=== PATIENT | female | born 1970 | race Two or more races ===

== ENCOUNTER → 2016-07-07 | Outpatient (CLI) | payer OTHER | LOC: M RAD 12:22 | PROVIDERS: ATTEND Nurse Practitioner Family | DX: N63 Unspecified lump in breast (principal) ==

== ENCOUNTER → 2016-07-12 | Outpatient (CLI) | payer OTHER ==
--- NOTE | 2016-07-12 11:53 | REP ---
Digital diagnostic bilateral mammography with CAD and focused right breast sonography: History: Lump found in the right breast at 9 o'clock. Comparison mammography is from June 27, 2015. Mammographic findings: A skin marker is affixed to the skin overlying the area of palpable lump. This projects in the upper outer quadrant of the right breast. Right breast views are augmented by magnified focal spot compression CC, MLO and true ML views. Routine views of the left breast are obtained. Scattered fibroglandular elements are again noted unchanged and symmetric. There is a normal-appearing lymph node projecting in the upper outer quadrant on the left unchanged. No neodensity is seen. No architectural distortion, microcalcification or worrisome skin change is appreciated. Sonographic findings: The right breast is scanned in the 9 o'clock to 11 o'clock position in the upper outer quadrant in the area of the palpable lump at 10 o'clock. Heterogeneous fibroglandular background echotexture is seen. No cyst is observed. No mass lesion is seen. No area of acoustic shadowing or architectural distortion is noted. Impression: BIRADS category II benign bilateral breast imaging. This negative report should not dissuade one from biopsy of a palpable lump depending on its clinical characteristics. Clinical follow-up is recommended. BI-RADS/ACR category 2 mammogram. Benign finding(s). Routine annual screening mammography (for women over age 40). This mammogram was interpreted with the aid of an FDA-approved computer-aided detection system. The patient states she had a clinical breast exam in July 2015. The patient letter being requested is M2. Signed by Mario Alberto Ferreira MD 07/12/2016 12:28 P
== END ==
LOC: M RAD 10:04
PROVIDERS: ATTEND Nurse Practitioner Family
DX: N63 Unspecified lump in breast (principal)
CPT/HCPCS: 76642; G0204

== ENCOUNTER → 2016-08-03 | Outpatient (CLI) | payer SELFPAY ==
[2016-08-03 11:02] LABS: ALBUMIN 3.9 GM/DL (3.2-5.2); ALBUMIN/GLOBULIN RATIO 0.95 (1.00-1.93); ALKALINE PHOSPHATASE 113 U/L (45-117); ALT/SGPT 35 U/L (12-78); ANION GAP 8 MEQ/L (8-16); AST/SGOT 22 U/L (15-37); BILIRUBIN,TOTAL 0.7 MG/DL (0.2-1.0); BLOOD UREA NITROGEN 13 MG/DL (7-18); CALCIUM LEVEL 9.5 MG/DL (8.5-10.1); CARBON DIOXIDE LEVEL 28 MEQ/L (21-32); CHLORIDE LEVEL 99 MEQ/L (98-107); CHOLESTEROL LEVEL 241 MG/DL (<200); CREATININE FOR GFR 0.83 MG/DL (0.55-1.02); GLOMERULAR FILTRATION RATE > 60.0 (>58); GLUCOSE, FASTING 346 MG/DL (70-105); POTASSIUM SERUM 3.7 MEQ/L (3.5-5.1); SODIUM LEVEL 135 MEQ/L (136-145); TRIGLYCERIDES LEVEL 265 MG/DL (<150)
== END ==
LOC: M LAB 09:52
PROVIDERS: ATTEND Family Medicine Addiction Medicine
DX: I10 Essential (primary) hypertension (principal)

== ENCOUNTER 2016-11-02 16:56 | Emergency (ER) | payer OTHER, SELFPAY ==
[~2016-11-02] VITALS: Ht 152.4 cm; Wt 83.5 kg
[2016-11-02] MEDS ORDERED: HYDR12.55 PO (17:15)
[2016-11-02] MEDS ORDERED: AMLO10TA2 PO (17:15)
[2016-11-02] MEDS ORDERED: ONDANSETRON 4MG/2ML VIAL (J2405) IV ONE (17:45)
[2016-11-02] MEDS ORDERED: NS 1,000 ML IV ONE (17:45)
--- NOTE | 2016-11-02 18:08 | REP ---
Clinical: Cerebrovascular accident . Comparison: None. Findings: The ventricles, sulci, and cisterns are normal in position and appearance. Bellamy-white differentiation is maintained. No acute intracranial hemorrhage, mass/mass effect, pathology or trauma/injury. No evidence for acute infarction. No extra-axial fluid collection. Calvarium is intact. Paranasal sinuses and mastoid air cells are clear. Impression: Normal noncontrast head CT. No evidence for acute intracranial pathology or trauma/injury. Signed by Malvin Blanchard MD 11/02/2016 05:59 P
[2016-11-02 18:29] LABS: BASO % 0.5 % (0.0-1.0); EOS # 0.2 K/mm3 (0.0-0.50); EOS % 3.2 % (0.0-3.0); LARGE UNSTAINED CELL # 0.1 K/mm3 (0.0-0.4); LARGE UNSTAINED CELL % 1.6 % (0.0-4.0); LYMPH % 25.4 % (24.0-44.0); MEAN CORPUSCULAR HEMOGLOBIN 25.3 pg (27.0-33.0); MEAN CORPUSCULAR HGB CONC 32.1 g/dl (32.0-36.5); MEAN CORPUSCULAR VOLUME 78.9 fl (80.0-96.0); MONO # 0.4 K/mm3 (0.0-0.8); MONO % 5.7 % (0.0-5.0); NEUTROPHILS # 4.8 K/mm3 (1.8-7.7); NEUTROPHILS % 63.7 % (36.0-66.0); PLATELET COUNT, AUTOMATED 216 k/mm3 (150-450); WHITE BLOOD COUNT 7.5 K/mm3 (4.0-10.0)
[2016-11-02 18:39] LABS: CONTROL LINE HCG INT CTR LINE PRESENT
[2016-11-02 18:48] LABS: ANION GAP 14 MEQ/L (8-16); BLOOD UREA NITROGEN 10 MG/DL (7-18); CALCIUM LEVEL 9.7 MG/DL (8.5-10.1); CARBON DIOXIDE LEVEL 21 MEQ/L (21-32); CHLORIDE LEVEL 99 MEQ/L (98-107); GLOMERULAR FILTRATION RATE > 60.0 (>58); GLUCOSE, FASTING 328 MG/DL (70-105); POTASSIUM SERUM 3.1 MEQ/L (3.5-5.1); SODIUM LEVEL 134 MEQ/L (136-145)
[2016-11-02] MEDS ORDERED: MECLIZINE 25 MG TABLET PO ONE ×2 (19:00→20:45)
[2016-11-02] MEDS ORDERED: POTASSIUM CHLORIDE 10 MEQ SR TABLET PO ONE (19:00)
--- NOTE | 2016-11-02 19:22 | ECGEPIP ---
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
--- NOTE | 2016-11-02 19:26 | REP ---
Clinical: Cerebrovascular accident . Comparison: None . Findings: The mediastinum and cardiac silhouette are stable and within normal limits for portable technique. The lung kaplan are clear without acute consolidation, effusion, or pneumothorax. Skeletal structures are intact. Impression: No acute cardiopulmonary process appreciated. Signed by Malvin Blanchard MD 11/02/2016 07:18 P
[2016-11-02] MEDS ORDERED: MECL-68 PO (20:36)
[2016-11-02] MEDS ORDERED: ZOFR4TAB3 PO (20:36)
[2016-11-02 20:40] VITALS: BP 157/89
== END 2016-11-02 21:32 | disposition home or self-care (01) ==
LOC: M ED 16:56
DX: H83.09 Labyrinthitis, unspecified ear (principal); I10 Essential (primary) hypertension

== ENCOUNTER 2016-11-04 21:39 | Emergency (ER) | payer OTHER ==
[~2016-11-04] VITALS: Ht 170.2 cm; Wt 76.4 kg
[~2016-11-04 21:39] MED LIST: AMLO10TA2 PO; HYDR12.55 PO; MECL-68 PO; ZOFR4TAB3 PO
[2016-11-04] MEDS ORDERED: KETOROLAC 30 MG/ML VIAL (J1885) IV ONE (22:30)
[2016-11-04] MEDS ORDERED: NS 1,000 ML IV ONE (22:30)
[2016-11-04] MEDS ORDERED: ONDANSETRON 4MG/2ML VIAL (J2405) IV ONE (22:30)
[2016-11-04 22:47] LABS: CONTROL LINE UCG INT CTR LINE PRESENT
[2016-11-04 22:54] LABS: BASO % 0.6 % (0.0-1.0); EOS # 0.3 K/mm3 (0.0-0.50); LARGE UNSTAINED CELL # 0.2 K/mm3 (0.0-0.4); LARGE UNSTAINED CELL % 2.2 % (0.0-4.0); LYMPH # 2.7 K/mm3 (1.5-4.5); LYMPH % 35.4 % (24.0-44.0); MEAN CORPUSCULAR HEMOGLOBIN 25.7 pg (27.0-33.0); MEAN CORPUSCULAR HGB CONC 32.7 g/dl (32.0-36.5); MEAN CORPUSCULAR VOLUME 78.5 fl (80.0-96.0); MONO # 0.5 K/mm3 (0.0-0.8); MONO % 6.2 % (0.0-5.0); NEUTROPHILS # 3.7 K/mm3 (1.8-7.7); NEUTROPHILS % 51.5 % (36.0-66.0); PLATELET COUNT, AUTOMATED 224 k/mm3 (150-450); RED CELL DISTRIBUTION WIDTH 15.8 % (11.5-14.5); WHITE BLOOD COUNT 7.2 K/mm3 (4.0-10.0)
[2016-11-04 23:07] LABS: ALBUMIN 3.7 GM/DL (3.2-5.2); ALBUMIN/GLOBULIN RATIO 0.82 (1.00-1.93); ALKALINE PHOSPHATASE 163 U/L (45-117); ALT/SGPT 46 U/L (12-78); ANION GAP 9 MEQ/L (8-16); AST/SGOT 36 U/L (15-37); BILIRUBIN,DIRECT < 0.1 MG/DL (0.0-0.2); BILIRUBIN,TOTAL 0.3 MG/DL (0.2-1.0); BLOOD UREA NITROGEN 9 MG/DL (7-18); CALCIUM LEVEL 9.5 MG/DL (8.5-10.1); CARBON DIOXIDE LEVEL 25 MEQ/L (21-32); CHLORIDE LEVEL 99 MEQ/L (98-107); CREATININE FOR GFR 1.04 MG/DL (0.55-1.02); GLOMERULAR FILTRATION RATE > 60.0 (>58); GLUCOSE, FASTING 370 MG/DL (70-105); SODIUM LEVEL 133 MEQ/L (136-145); TOTAL PROTEIN 8.2 GM/DL (6.4-8.2)
[2016-11-04] MEDS ORDERED: METF500T13 PO (23:43)
[2016-11-04] MEDS ORDERED: metFORMIN (GLUCOPHAGE) 500 MG TAB PO ONE (23:45)
[2016-11-04 23:55] VITALS: BP 164/96
== END 2016-11-05 00:06 | disposition home or self-care (01) ==
LOC: M ED 21:39
DX: E11.9 Type 2 diabetes mellitus without complications (principal)

== ENCOUNTER 2016-11-19 14:47 | Emergency (ER) | payer OTHER ==
[~2016-11-19] VITALS: Ht 170.2 cm; Wt 75.5 kg
[~2016-11-19 14:47] MED LIST changes: +METF500T13 PO
[2016-11-19] MEDS ORDERED: POTA99TA PO (15:06)
[2016-11-19] MEDS ORDERED: ASPI81TA85 PO (15:06)
[2016-11-19 15:59] LABS: INR 0.92
[2016-11-19 16:00] LABS: ALBUMIN 4.3 GM/DL (3.2-5.2); ALBUMIN/GLOBULIN RATIO 0.96 (1.00-1.93); ALKALINE PHOSPHATASE 99 U/L (45-117); ALT/SGPT 51 U/L (12-78); ANION GAP 11 MEQ/L (8-16); AST/SGOT 20 U/L (15-37); BASO % 0.5 % (0.0-1.0); BILIRUBIN,DIRECT 0.1 MG/DL (0.0-0.2); BILIRUBIN,TOTAL 0.7 MG/DL (0.2-1.0); BLOOD UREA NITROGEN 8 MG/DL (7-18); CALCIUM LEVEL 9.9 MG/DL (8.5-10.1); CARBON DIOXIDE LEVEL 25 MEQ/L (21-32); CHLORIDE LEVEL 97 MEQ/L (98-107); CREATININE FOR GFR 0.79 MG/DL (0.55-1.02); EOS # 0.2 K/mm3 (0.0-0.50); EOS % 2.9 % (0.0-3.0); FREE T4 1.21 NG/DL (0.76-1.46); GLOMERULAR FILTRATION RATE > 60.0 (>58); GLUCOSE, FASTING 191 MG/DL (70-105); LARGE UNSTAINED CELL # 0.2 K/mm3 (0.0-0.4); LARGE UNSTAINED CELL % 2.3 % (0.0-4.0); LYMPH # 2.8 K/mm3 (1.5-4.5); LYMPH % 34.6 % (24.0-44.0); MEAN CORPUSCULAR HEMOGLOBIN 26.3 pg (27.0-33.0); MEAN CORPUSCULAR HGB CONC 33.5 g/dl (32.0-36.5); MEAN CORPUSCULAR VOLUME 78.3 fl (80.0-96.0); MONO # 0.5 K/mm3 (0.0-0.8); MONO % 6.6 % (0.0-5.0); NEUTROPHILS % 53.1 % (36.0-66.0); PLATELET COUNT, AUTOMATED 254 k/mm3 (150-450); SODIUM LEVEL 133 MEQ/L (136-145); TOTAL PROTEIN 8.8 GM/DL (6.4-8.2); WHITE BLOOD COUNT 7.5 K/mm3 (4.0-10.0)
[2016-11-19 16:09] LABS: POTASSIUM SERUM 2.8 MEQ/L (3.5-5.1)
[2016-11-19] MEDS ORDERED: POTASSIUM CHLORIDE 10 MEQ SR TABLET PO ONE ×2 (16:15→20:00)
[2016-11-19] MEDS ORDERED: K-TA10TA2 PO ×2 (17:39→18:31)
[2016-11-19] MEDS ORDERED: CHLO25TA GT (17:43)
[2016-11-19] MEDS ORDERED: ISOVUE-370 76% 100ML VIAL (Q9967) As Ordered ONE (17:47)
--- NOTE | 2016-11-19 18:30 | REPUSA ---
CT angiogram of the chest Clinical statement: Chest pain and shortness of breath. Technique: Multiple axial CT images were obtained from the thoracic inlet through the upper abdomen a fter a bolus administration of nonionic intravenous contrast. Coronal and sagittal reconstructions we re also obtained. No comparison is available. Findings: The pulmonary arteries are well-opacified with contrast, with no intraluminal filling defec ts to suggest embolism. The thoracic aorta is unremarkable. Thyroid gland is within normal limits. Th ere is no thoracic lymphadenopathy. There are no pericardial or pleural effusions. The lungs are sung r. Limited imaging of the upper abdomen is unremarkable. There are no suspicious osseous lesions. Impression: Unremarkable CT examination of the chest. No evidence of pulmonary embolism.
[2016-11-19] MEDS ORDERED: HYDR12.55 PO (18:31)
[2016-11-19] MEDS ORDERED: LISI10TA4 PO (18:31)
[2016-11-19 22:30] VITALS: BP 137/90
--- NOTE | 2016-11-20 11:35 | ECGEPIP ---
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
--- NOTE | 2016-11-20 20:00 | ECGEPIP ---
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
--- NOTE | 2016-11-20 20:02 | ECGEPIP ---
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
--- NOTE | 2016-11-22 07:45 | REP ---
Portable chest, single AP view, patient sitting, 03:46 p.m.: Comparison is 11/02/2016. The lung kaplan are clear. The cardiac size is normal. The katelyn, mediastinum, and bony thorax are unremarkable. Impression: Negative portable chest. There is no interval change. Signed by Levon Richard MD 11/19/2016 03:42 P
== END 2016-11-19 22:55 | disposition home or self-care (01) ==
LOC: M ED 14:47
DX: R07.9 Chest pain, unspecified (principal); I10 Essential (primary) hypertension; E87.6 Hypokalemia; E11.9 Type 2 diabetes mellitus without complications

== ENCOUNTER → 2016-11-25 | Outpatient (CLI) | payer OTHER ==
[~2016-11-25] MED LIST changes: +ASPI81TA85 PO; +CHLO25TA GT; +K-TA10TA2 PO; +LISI10TA4 PO; +POTA99TA PO
== END ==
LOC: M LAB 09:18
PROVIDERS: ATTEND Internal Medicine Cardiovascular Disease
DX: I10 Essential (primary) hypertension (principal)

== ENCOUNTER → 2016-11-29 | Outpatient (CLI) | payer OTHER ==
[2016-11-29 13:02] LABS: ANION GAP 12 MEQ/L (8-16); BLOOD UREA NITROGEN 11 MG/DL (7-18); CALCIUM LEVEL 9.7 MG/DL (8.5-10.1); CARBON DIOXIDE LEVEL 23 MEQ/L (21-32); CHLORIDE LEVEL 100 MEQ/L (98-107); CREATININE FOR GFR 0.74 MG/DL (0.55-1.02); GLOMERULAR FILTRATION RATE > 60.0 (>58); GLUCOSE, FASTING 228 MG/DL (70-105); POTASSIUM SERUM 4.1 MEQ/L (3.5-5.1); SODIUM LEVEL 135 MEQ/L (136-145)
== END ==
LOC: M LAB 11:49
PROVIDERS: ATTEND Internal Medicine Cardiovascular Disease
DX: E87.6 Hypokalemia (principal)

== ENCOUNTER → 2017-09-20 | Outpatient (CLI) | payer OTHER | LOC: M WHC 09:30 | DX: Z12.31 Encounter for screening mammogram for malignant neoplasm of breast (principal) ==

== ENCOUNTER → 2018-09-20 | Outpatient (REF) | payer OTHER ==
[~2018-09-20] MED LIST changes: -AMLO10TA2 PO; +AMLO10TA5 PO; +ZOFR4TAB14 PO; -ZOFR4TAB3 PO
[2018-09-20 12:44] LABS: ALBUMIN 3.6 GM/DL (3.2-5.2); ALT/SGPT 37 U/L (12-78); BILIRUBIN,TOTAL 0.5 MG/DL (0.2-1.0); BLOOD UREA NITROGEN 7 MG/DL (7-18); CALCIUM LEVEL 8.7 MG/DL (8.5-10.1); CARBON DIOXIDE LEVEL 26 MEQ/L (21-32); CHLORIDE LEVEL 105 MEQ/L (98-107); CHOLESTEROL LEVEL 135 MG/DL (<200); CREATININE FOR GFR 0.71 MG/DL (0.55-1.30); GLOMERULAR FILTRATION RATE > 60.0 (>58); GLUCOSE, FASTING 185 MG/DL (70-100); HDL CHOLESTEROL 56 MG/DL (>40); LDL CHOLESTEROL 58 MG/DL (<100); NON-HDL-C 79 MG/DL; POTASSIUM SERUM 4.1 MEQ/L (3.5-5.1); SODIUM LEVEL 138 MEQ/L (136-145); TOTAL PROTEIN 8.1 GM/DL (6.4-8.2); TRIGLYCERIDES LEVEL 105 MG/DL (<150)
[2018-09-20 13:33] LABS: HEMOGLOBIN A1c 8.9 %
== END ==
LOC: M LAB REF 11:44
PROVIDERS: ATTEND Family Medicine Addiction Medicine
DX: I10 Essential (primary) hypertension (principal)

== ENCOUNTER → 2018-09-21 | Outpatient (REF) | payer OTHER ==
[2018-09-23 14:12] LABS: HPV HYBRID CAPTURE II Negative (Negative)
== END ==
LOC: M SFHCWAGY 10:08
PROVIDERS: ATTEND Nurse Practitioner Family
DX: Z12.4 Encounter for screening for malignant neoplasm of cervix (principal)
CPT/HCPCS: 87624; G0123

== ENCOUNTER → 2018-09-21 | Outpatient (CLI) | payer OTHER ==
--- NOTE | 2018-09-21 11:08 | REPMRS ---
Patient History The patient states she had a clinical breast exam in 08/2018. No known family history of cancer. 3D TOMOSYNTHESIS WAS PERFORMED. Digital Woman Screen Mammo: September 21, 2018 - Exam #: [id number] Bilateral CC and MLO view(s) were taken. Technologist: Erin Jerome, Technologist Prior study comparison: September 20, 2017, digital woman screen mammo performed at [facility]. July 12, 2016, digital mammo diagnostic bilateral, performed at [facility]. FINDINGS: The breast tissue is heterogeneously dense. This may lower the sensitivity of mammography. There has been no change in the appearance of the mammogram from the prior studies. There is a moderate amount of residual fibroglandular tissue which is fairly symmetric. There is no interval development of dominant mass, areas of architectural distortion, or clustered microcalcification typical of malignancy. Assessment: BI-RADS/ACR category 1 mammogram. Negative Mammogram. Recommendation Routine screening mammogram in 1 year (for women over age 40). This mammogram was interpreted with the aid of an FDA-approved computer-aided dectection system. Electronically Signed By: Levon Bellamy MD 09/21/18 0103
== END ==
LOC: M WHC 09:35
PROVIDERS: ATTEND Nurse Practitioner Family
DX: Z12.31 Encounter for screening mammogram for malignant neoplasm of breast (principal)

== ENCOUNTER → 2018-10-03 | Outpatient (CLI) | payer OTHER ==
--- NOTE | 2018-10-04 04:04 | REP ---
Clinical: Pelvic pain. Enlarged uterus . Technique: Transabdominal pelvic ultrasound followed by transvaginal examination for better evaluation of the endometrium and adnexa. Findings: Bladder is unremarkable and measures 8.8 x 9.5 x 8.5 cm . Enlarged heterogeneous myomatous uterus measures 18.8 x 9.4 x 13.4 cm . The endometrial complex measures 5.8 mm thickness. Innumerable subserosal, intramural, and submucosal fibroids are identified throughout the uterus including at the fundus and lower uterine segment measuring between 2.9 to 6.8 cm maximal diameter each. Largest fundal intramural / submucosal fibroid causes mass effect along the posterior endometrium. Nabothian cysts are also identified measuring up to 1.4 cm maximal diameter. Bilateral ovaries are normal in appearance. Right ovary measures 1.4 x 1.0 x 1.8 cm. Left ovary measures 1.7 x 0.6 x 1.4 cm. No pelvic fluid or adnexal mass lesion. . Impression: 1. Enlarged heterogeneous myomatous uterus with at least seven discrete fibroids up to 6.8 cm having mass effect on the endometrial canal. Nabothian cysts measuring up to 1.4 cm. 2. Normal bilateral ovaries
== END ==
LOC: M WHC 07:47
PROVIDERS: ATTEND Nurse Practitioner Family
DX: D25.2 Subserosal leiomyoma of uterus (principal); D25.0 Submucous leiomyoma of uterus; D25.1 Intramural leiomyoma of uterus; N88.8 Other specified noninflammatory disorders of cervix uteri

== ENCOUNTER → 2018-10-20 | Outpatient (REF) | payer SELFPAY ==
[2018-10-20 13:36] LABS: ALT/SGPT 38 U/L (12-78); BILIRUBIN,TOTAL 0.8 MG/DL (0.2-1.0); BLOOD UREA NITROGEN 8 MG/DL (7-18); CALCIUM LEVEL 9.2 MG/DL (8.5-10.1); CARBON DIOXIDE LEVEL 27 MEQ/L (21-32); CHLORIDE LEVEL 105 MEQ/L (98-107); CHOLESTEROL LEVEL 149 MG/DL (<200); CHOLESTEROL RISK RATIO 2.709 (<5); CREATININE FOR GFR 0.88 MG/DL (0.55-1.30); GLOMERULAR FILTRATION RATE > 60.0 (>58); GLUCOSE, FASTING 191 MG/DL (70-100); HDL CHOLESTEROL 55 MG/DL (>40); LDL CHOLESTEROL 70 MG/DL (<100); NON-HDL-C 94 MG/DL; SODIUM LEVEL 138 MEQ/L (136-145); TRIGLYCERIDES LEVEL 119 MG/DL (<150)
[2018-10-20 14:32] LABS: HEMOGLOBIN A1c 9.3 %
== END ==
LOC: M LAB REF 12:17
PROVIDERS: ATTEND Family Medicine Addiction Medicine
DX: E11.65 Type 2 diabetes mellitus with hyperglycemia (principal)

== ENCOUNTER → 2019-04-24 | Outpatient (REF) | payer SELFPAY ==
[2019-04-24 14:02] LABS: HEMOGLOBIN A1c 8.8 %
== END ==
LOC: M LAB REF 12:46
PROVIDERS: ATTEND Nurse Practitioner Family
DX: E11.9 Type 2 diabetes mellitus without complications (principal)

== ENCOUNTER → 2019-05-08 | Outpatient (REF) | payer SELFPAY ==
[2019-05-08 16:59] LABS: HEMOGLOBIN A1c 8.8 %
== END ==
LOC: M LAB REF 12:10
PROVIDERS: ATTEND Nurse Practitioner Family
DX: E11.9 Type 2 diabetes mellitus without complications (principal)

== ENCOUNTER → 2019-09-25 | Outpatient (CLI) | payer OTHER ==
[~2019-09-25] MED LIST changes: -MECL-68 PO; +MECL1TAB31 PO
--- NOTE | 2019-09-25 11:47 | REPMRS ---
Patient History The patient states she had a clinical breast exam in August 2019. No known family history of cancer. Digital Woman Screen Mammo: September 25, 2019 - Exam #: [id number] Bilateral CC and MLO view(s) were taken. Technologist: Mayte Villa Technologist Prior study comparison: September 21, 2018, bilateral digital woman screen mammo performed at [facility]. September 20, 2017, digital woman screen mammo performed at [facility]. July 12, 2016, right breast ultrasound unilateral limited, performed at [facility]. FINDINGS: There are scattered fibroglandular densities. The Volpara volumetric breast density category is:B. There has been no change in the appearance of the mammogram from the prior studies. There is a mild amount of scattered fibroglandular density which is fairly symmetric. There is no interval development of dominant mass, architectural distortion, or grouped microcalcification suggestive of malignancy. 3-D tomosynthesis shows no additional findings. Assessment: BI-RADS/ACR category 1 mammogram. Negative Mammogram. Recommendation Routine screening mammogram of both breasts in 1 year (for women over age 40). This patient's Lifetime Breast Cancer Risk is estimated at 13.2 %. This mammogram was interpreted with the aid of an FDA-approved computer-aided dectection system. Electronically Signed By: Phoenix Ferreira MD 09/25/19 7109
== END ==
LOC: M WHC 10:48
PROVIDERS: ATTEND Nurse Practitioner Family
DX: Z12.31 Encounter for screening mammogram for malignant neoplasm of breast (principal)

== ENCOUNTER → 2019-11-06 | Outpatient (REF) | payer SELFPAY ==
[~2019-11-06] MED LIST changes: -AMLO10TA5 PO; +AMLO1TAB25 PO; -ASPI81TA85 PO; +ASPI81TA86 PO
[2019-11-06 15:08] LABS: ALT/SGPT 34 U/L (12-78); BILIRUBIN,TOTAL 0.4 MG/DL (0.2-1.0); BLOOD UREA NITROGEN 11 MG/DL (7-18); CALCIUM LEVEL 9.4 MG/DL (8.5-10.1); CARBON DIOXIDE LEVEL 31 MEQ/L (21-32); CHLORIDE LEVEL 106 MEQ/L (98-107); CHOLESTEROL LEVEL 156 MG/DL (<200); CHOLESTEROL RISK RATIO 3.319 (<5); CREATININE FOR GFR 0.72 MG/DL (0.55-1.30); GLOMERULAR FILTRATION RATE > 60.0 (>58); GLUCOSE, FASTING 163 MG/DL (70-100); HDL CHOLESTEROL 47 MG/DL (>40); LDL CHOLESTEROL 90 MG/DL (<100); NON-HDL-C 109 MG/DL; POTASSIUM SERUM 3.9 MEQ/L (3.5-5.1); SODIUM LEVEL 139 MEQ/L (136-145); TRIGLYCERIDES LEVEL 97 MG/DL (<150)
[2019-11-06 20:37] LABS: HEMOGLOBIN A1c 8.3 %
== END ==
LOC: M LAB REF 12:54
PROVIDERS: ATTEND Physician Assistant
DX: E11.65 Type 2 diabetes mellitus with hyperglycemia (principal); I10 Essential (primary) hypertension

== ENCOUNTER → 2020-02-28 | Outpatient (REF) | payer SELFPAY ==
[2020-02-28 16:58] LABS: BASO % 0.8 % (0.0-1.0); EOS # 0.3 10^3/uL (0.0-0.5); EOS % 5.2 % (0.0-3.0); HEMATOCRIT 39.5 % (36.0-47.0); HEMOGLOBIN 12.2 g/dl (12.0-15.5); LYMPH % 37.9 % (24.0-44.0); MEAN CORPUSCULAR HEMOGLOBIN 24.6 pg (27.0-33.0); MEAN CORPUSCULAR HGB CONC 30.9 g/dl (32.0-36.5); MEAN CORPUSCULAR VOLUME 79.8 fl (80.0-96.0); MONO # 0.5 10^3/uL (0.0-0.8); MONO % 9.9 % (0.0-5.0); NEUTROPHILS # 2.4 10^3/uL (1.5-8.5); RED BLOOD COUNT 4.95 10^6/uL (4.00-5.40); WHITE BLOOD COUNT 5.2 10^3/uL (4.0-10.0)
[2020-02-28 17:32] LABS: ALT/SGPT 41 U/L (12-78); BILIRUBIN,TOTAL 0.5 MG/DL (0.2-1.0); BLOOD UREA NITROGEN 11 MG/DL (7-18); CALCIUM LEVEL 9.3 MG/DL (8.5-10.1); CARBON DIOXIDE LEVEL 30 MEQ/L (21-32); CHLORIDE LEVEL 103 MEQ/L (98-107); CREATININE FOR GFR 0.75 MG/DL (0.55-1.30); GLOMERULAR FILTRATION RATE > 60.0 (>58); GLUCOSE, FASTING 205 MG/DL (70-100); POTASSIUM SERUM 4.9 MEQ/L (3.5-5.1); SODIUM LEVEL 137 MEQ/L (136-145); TOTAL PROTEIN 8.2 GM/DL (6.4-8.2)
[2020-02-28 17:48] LABS: PLATELET COUNT, AUTOMATED 157 10^3/uL (150-450)
== END ==
LOC: M LAB REF 16:31
PROVIDERS: ATTEND Physician Assistant
DX: I10 Essential (primary) hypertension (principal)

== ENCOUNTER → 2020-05-07 | Outpatient (REF) | payer SELFPAY ==
[2020-05-07 16:33] LABS: BASO % 0.6 % (0.0-1.0); EOS # 0.4 10^3/uL (0.0-0.5); EOS % 7.9 % (0.0-3.0); HEMOGLOBIN 11.7 g/dl (12.0-15.5); LYMPH # 1.9 10^3/uL (1.5-5.0); LYMPH % 37.2 % (24.0-44.0); MEAN CORPUSCULAR HEMOGLOBIN 24.8 pg (27.0-33.0); MEAN CORPUSCULAR HGB CONC 30.8 g/dl (32.0-36.5); MEAN CORPUSCULAR VOLUME 80.7 fl (80.0-96.0); MONO # 0.5 10^3/uL (0.0-0.8); MONO % 8.9 % (0.0-5.0); NEUTROPHILS # 2.3 10^3/uL (1.5-8.5); NEUTROPHILS % 45.2 % (36.0-66.0); PLATELET COUNT, AUTOMATED 167 10^3/uL (150-450); RED BLOOD COUNT 4.71 10^6/uL (4.00-5.40); WHITE BLOOD COUNT 5.2 10^3/uL (4.0-10.0)
[2020-05-07 17:01] LABS: ALBUMIN 4.2 GM/DL (3.2-5.2); ALT/SGPT 42 U/L (12-78); BILIRUBIN,TOTAL 0.5 MG/DL (0.2-1.0); BLOOD UREA NITROGEN 10 MG/DL (7-18); CARBON DIOXIDE LEVEL 30 MEQ/L (21-32); CHLORIDE LEVEL 105 MEQ/L (98-107); CREATININE FOR GFR 0.78 MG/DL (0.55-1.30); GLOMERULAR FILTRATION RATE > 60.0 (>58); GLUCOSE, FASTING 195 MG/DL (70-100); POTASSIUM SERUM 4.7 MEQ/L (3.5-5.1); SODIUM LEVEL 137 MEQ/L (136-145); TOTAL PROTEIN 7.9 GM/DL (6.4-8.2)
[2020-05-07 18:01] LABS: HEMOGLOBIN A1c 7.6 %
== END ==
LOC: M LAB REF 16:00
PROVIDERS: ATTEND Physician Assistant
DX: E11.65 Type 2 diabetes mellitus with hyperglycemia (principal)

== ENCOUNTER → 2020-07-10 | Outpatient (CLI) | payer BC, SELFPAY ==
[~2020-07-10] MED LIST changes: +LISI10TA22 PO; -LISI10TA4 PO
--- NOTE | 2020-07-10 10:20 | REP ---
INDICATION: PAIN COMPARISON: None. TECHNIQUE: Internal rotation, external rotation, and Y view. FINDINGS: No evidence for acute fracture or dislocation. Subtle irregularity along the inferior margin of the glenoid rim is suggested. The acromioclavicular joint and proximal humerus appear normal. The subacromial space is normal. No periarticular calcifications. No osteophytosis. Surrounding soft tissues are normal. IMPRESSION: Essentially age-appropriate examination. Minimal degenerative changes along the inferior margin of the glenoid rim cannot be excluded. <Electronically signed by Malvin Blanchard > 07/10/20 1016
== END ==
LOC: M WUC 09:38
PROVIDERS: ATTEND Physician Assistant
DX: M19.011 Primary osteoarthritis, right shoulder (principal)

== ENCOUNTER → 2020-09-25 | Outpatient (CLI) | payer OTHER, BC ==
--- NOTE | 2020-09-25 10:51 | REPMRS ---
Patient History The patient states she had a clinical breast exam in August 2020. No known family history of cancer. Patient states no breast complaints today. Patient has signed MRS History Sheet. Digital Woman Screen Mammo: September 25, 2020 - Exam #: [id number] Bilateral CC and MLO view(s) were taken. Technologist: Mayte Villa Technologist Prior study comparison: September 25, 2019, bilateral digital woman screen mammo performed at [facility]. September 21, 2018, bilateral digital woman screen mammo performed at [facility]. September 20, 2017, digital woman screen mammo performed at [facility]. FINDINGS: There are scattered fibroglandular densities. The Volpara volumetric breast density category is:B. There has been no change in the appearance of the mammogram from the prior studies. There is a mild amount of scattered fibroglandular density which is fairly symmetric. There is no interval development of dominant mass, architectural distortion, or grouped microcalcification suggestive of malignancy. 3-D tomosynthesis shows no additional findings. Assessment: BI-RADS/ACR category 1 mammogram. Negative Mammogram. Recommendation Routine screening mammogram of both breasts in 1 year (for women over age 40). This patient's [facility] Lifetime Breast Cancer Risk is estimated at 13.0 %. This mammogram was interpreted with the aid of an FDA-approved computer-aided dectection system. Electronically Signed By: Phoenix Ferreira MD 09/25/20 2730
== END ==
LOC: M WHC 10:05
PROVIDERS: ATTEND Nurse Practitioner Women's Health
DX: Z12.31 Encounter for screening mammogram for malignant neoplasm of breast (principal)

== ENCOUNTER → 2020-10-15 | Outpatient (REF) ==
[2020-10-16 05:12] LABS: HERPES ZOSTER, VARICELLA IgG 956 index (Immune >165); RUBEOLA IgG ANTIBODY >300.0 AU/mL (Immune >16.4)
== END ==
LOC: M LAB 11:21
PROVIDERS: ATTEND Nurse Practitioner Adult Health
DX: Z02.89 Encounter for other administrative examinations (principal)

== ENCOUNTER → 2020-10-15 | Outpatient (CLI) | payer BC ==
--- NOTE | 2020-10-16 07:32 | REP ---
INDICATION: NON TOXIC GOITER COMPARISON: None. TECHNIQUE: Bellamy scale and color evaluation of the thyroid gland using the linear high frequency transducer. FINDINGS: The thyroid gland is normal in contour, shape, size, and echogenicity. No nodule/mass or cystic abnormalities are appreciated. Right thyroid lobe measures 4.0 x 1.8 x 1.9 cm. Isthmus measures 7 mm in width. Left thyroid lobe measures 2.6 x 1.1 x 1.2 cm. IMPRESSION: Relatively normal thyroid gland. <Electronically signed by Malvin Blanchard > 10/16/20 0729
== END ==
LOC: M RAD 14:29
PROVIDERS: ATTEND Pediatrics
DX: E04.9 Nontoxic goiter, unspecified (principal)

== ENCOUNTER → 2020-10-22 | Outpatient (REF) ==
--- NOTE | 2020-10-22 13:08 | REP ---
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 COMPARISON: 11/19/2016 a portable exam FINDINGS: The superior mediastinal structures are midline. The cardiac silhouette is unremarkable in size, shape, and position. The diaphragmatic surfaces of the lungs are regular, and the costophrenic angles are clear. The pulmonary kaplan are clear. The imaged osseous structures are intact. IMPRESSION: There is no acute cardiopulmonary disease. <Electronically signed by Smooth Mojica > 10/22/20 [id number]
== END ==
LOC: M RAD 11:15
PROVIDERS: ATTEND Nurse Practitioner Adult Health
DX: R76.11 Nonspecific reaction to tuberculin skin test without active tuberculosis (principal); Z02.89 Encounter for other administrative examinations

== ENCOUNTER 2020-11-14 17:15 | Emergency (ER) | payer BC ==
[~2020-11-14] VITALS: Ht 170.2 cm; Wt 74.5 kg
[2020-11-14] MEDS ORDERED: CARV25TA PO (17:26)
[2020-11-14] MEDS ORDERED: LISI20TA33 PO (17:26)
[2020-11-14] MEDS ORDERED: METF-838 PO (17:26)
[2020-11-14] MEDS ORDERED: CHLO125TA PO (17:26)
--- NOTE | 2020-11-14 18:33 | REP ---
INDICATION: elevated BP. COMPARISON: 10/22/2020 chest x-ray, 11/19/2016 CT angio chest. TECHNIQUE: Two views FINDINGS: The lung kaplan are well inflated without focal mass, acute infiltrate, pleural effusion, atelectasis or pulmonary nodule. There is no lateral pleural thickening or apical scar. Heart, mediastinal and hilar contours are normal. The aorta and airway were intact. The bony thorax shows no acute finding. There is no free air under the diaphragm. IMPRESSION: 1. No acute cardiopulmonary disease, stable chest. <Electronically signed by Sergio Johnson > 11/14/20 [id number]
[2020-11-14 19:45] LABS: BASO % 0.8 % (0.0-1.0); EOS # 0.3 10^3/uL (0.0-0.5); EOS % 6.6 % (0.0-3.0); HEMOGLOBIN 12.9 g/dl (12.0-15.5); LYMPH # 1.7 10^3/uL (1.5-5.0); LYMPH % 34.4 % (24.0-44.0); MEAN CORPUSCULAR HEMOGLOBIN 24.3 pg (27.0-33.0); MEAN CORPUSCULAR HGB CONC 31.5 g/dl (32.0-36.5); MEAN CORPUSCULAR VOLUME 77.2 fl (80.0-96.0); MONO # 0.5 10^3/uL (0.0-0.8); MONO % 9.5 % (2.0-8.0); NEUTROPHILS # 2.4 10^3/uL (1.5-8.5); NEUTROPHILS % 48.5 % (36.0-66.0); PLATELET COUNT, AUTOMATED 176 10^3/uL (150-450); RED BLOOD COUNT 5.31 10^6/uL (4.00-5.40)
[2020-11-14 20:12] LABS: ALT/SGPT 50 U/L (12-78); BILIRUBIN,DIRECT 0.1 MG/DL (0.0-0.2); BILIRUBIN,TOTAL 0.5 MG/DL (0.2-1.0); BLOOD UREA NITROGEN 9 MG/DL (7-18); CALCIUM LEVEL 9.4 MG/DL (8.5-10.1); CARBON DIOXIDE LEVEL 28 MEQ/L (21-32); CHLORIDE LEVEL 105 MEQ/L (98-107); CREATININE FOR GFR 0.84 MG/DL (0.55-1.30); GLOMERULAR FILTRATION RATE > 60.0 (>58); GLUCOSE, FASTING 212 MG/DL (70-100); LIPASE 279 U/L (73-393); POTASSIUM SERUM 3.8 MEQ/L (3.5-5.1); SODIUM LEVEL 141 MEQ/L (136-145); TOTAL PROTEIN 8.5 GM/DL (6.4-8.2)
[2020-11-14] MEDS ORDERED: hydrALAZINE 20MG/ML 1ML VIAL (J0360 PER 20MG) IV STA (23:17)
[2020-11-14 23:54] LABS: CK-MB VALUE MASS 1.2 NG/ML (<3.6); CPK CREATINE PHOSPHOKINASE 218 U/L (26-192); MB/CK RELATIVE INDEX 0.55 (< OR =4); TROPONIN I < 0.02 NG/ML (< 0.10)
[2020-11-15] MEDS ORDERED: CARVedilol 12.5 MG TAB PO ONE (00:05)
[2020-11-15 00:42] VITALS: BP 174/90
[2020-11-15 02:45] VITALS: BP 146/70
--- NOTE | 2020-11-15 10:57 | ECGEPIP ---
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
== END 2020-11-15 03:02 | disposition home or self-care (01) ==
LOC: M ED 17:15
DX: I10 Essential (primary) hypertension (principal); E11.9 Type 2 diabetes mellitus without complications; E78.5 Hyperlipidemia, unspecified; Z79.899 Other long term (current) drug therapy; Z79.84 Long term (current) use of oral hypoglycemic drugs

== ENCOUNTER → 2020-12-09 | Outpatient (CLI) | payer BC ==
[~2020-12-09] MED LIST changes: +CARV25TA PO; +CHLO125TA PO; +LISI20TA33 PO; +METF-838 PO
--- NOTE | 2020-12-09 09:14 | REP ---
INDICATION: HTN. COMPARISON: None. TECHNIQUE: Bilateral renal ultrasound. Bilateral renal artery Doppler ultrasound. FINDINGS: Bilateral renal ultrasound: The right kidney measures 11.5 x 6.4 x 4.8 cm. Left kidney measures 10.3 x 5.7 x 6.3 cm. The kidneys are normal size. There is no calculus or hydronephrosis the right or the left. There are no solid or cystic renal masses on the right or the left. Bladder: The bladder is incompletely distended and cannot be further evaluated. However, a 6.9 x 6.8 by 8.1 cm hypoechoic mass is noted in the uterus compatible with fibroid. Additionally noted that on the pelvic ultrasound dated 10/03 2018 at least 7 uterine fibroids were identified. Bilateral renal artery Doppler ultrasound: Right renal artery: Peak renal artery velocity: 116.0 centimeters/second. Peak aortic velocity: 111.0 centimeters/second. Renal-aortic ratio: 1.0. Resistive index: Upper pole 0.66, mid pole 0.66, lower pole 0.67. Acceleration time: Upper pole 0.03, mid pole 0.04 L lower pole 0.05 Left kidney: Peak renal artery velocity: 111 centimeters/second. Peak aortic velocity: 111 centimeters/second. Renal-aortic ratio: 1.0. Resistive index: Upper pole: 0.75, mid pole 0.69, lower pole 0.68. Acceleration time: Upper pole 0.04, mid pole 0.04, lower pole 0.05. IMPRESSION: The kidneys are normal size and otherwise unremarkable. Fibroid is identified in the uterus. There is no ultrasound evidence of renal artery stenosis in the right or left renal arteries. <Electronically signed by Levon Richard > 12/09/20 1989
--- NOTE | 2020-12-09 22:25 | ECHO ---
"ECHOCARDIOGRAM DATE OF PROCEDURE: 12/09/2020 Age: 50 Gender: Female Height: 170 cm Weight: 73 kg REFERRING PHYSICIAN: Dr. Rose Marie Locke INDICATION: Hypertension MEASUREMENTS: | IVS 1.2 cm LV 4.0 cm LVPW 1.2 cm LA 3.2 cm Aorta 2.7 cm Left atrium volume index 31 Mitral E wave velocity 71 A wave 70 E prime septal 5.1 E prime lateral 7.4 FINDINGS: This study is of good technical quality. The patient is in sinus rhythm. Left ventricle is normal size and systolic function, calculated LVEF of 64%. Mild left ventricular hypertrophy is present. Right ventricle is also normal size and normal systolic function. Left atrium is mildly enlarged. Right atrium is normal. Aortic, mitral, tricuspid and pulmonic valves all appear normal. No pericardial effusion is noted. Inferior vena cava was poorly seen. Aortic root and aortic arch appear normal. Abdominal aorta was not well visualized. Doppler interrogation reveals competent aortic valve. There is trace mitral and trace tricuspid insufficiency. Quality of TR jet was not sufficient to estimate pulmonary artery pressure. Pulmonic valve was functionally competent. Mitral inflow pattern and tissue Doppler imaging of mitral annulus revealed probably grade 2 diastolic dysfunction due to reduced velocities of mitral annulus. CONCLUSIONS: 1. Study is of good technical quality; underlying sinus rhythm. 2. Normal LV size with normal LV systolic function, calculated LVEF of 64%. Mild LVH. Likely grade 2 diastolic dysfunction. 3. No significant valvular disease. 4. Unable to estimate central venous pressure and pulmonary artery pressure."
== END ==
LOC: M RAD 07:33
PROVIDERS: ATTEND Pediatrics
DX: I10 Essential (primary) hypertension (principal)

== ENCOUNTER 2021-01-07 14:30 | Emergency (ER) | payer BC ==
[~2021-01-07] VITALS: Ht 170.2 cm; Wt 74.3 kg
[2021-01-07] MEDS ORDERED: LOSA100T50 (15:25)
[2021-01-07 21:18] LABS: BASO % 0.5 % (0.0-1.0); EOS # 0.3 10^3/uL (0.0-0.5); EOS % 4.2 % (0.0-3.0); HEMATOCRIT 40.9 % (36.0-47.0); HEMOGLOBIN 12.9 g/dl (12.0-15.5); LYMPH # 2.3 10^3/uL (1.5-5.0); LYMPH % 37.5 % (24.0-44.0); MEAN CORPUSCULAR HEMOGLOBIN 24.3 pg (27.0-33.0); MEAN CORPUSCULAR HGB CONC 31.5 g/dl (32.0-36.5); MEAN CORPUSCULAR VOLUME 77.2 fl (80.0-96.0); MONO # 0.5 10^3/uL (0.0-0.8); NEUTROPHILS % 49.5 % (36.0-66.0); PLATELET COUNT, AUTOMATED 177 10^3/uL (150-450)
[2021-01-07 21:38] LABS: ERYTHROCYTE SEDIMENTATION RATE 14 mm/hr (0-20)
[2021-01-07 21:41] LABS: C REACTIVE PROTEIN QUANTITATIV < 0.30 MG/DL (0.00-0.30); CK-MB VALUE MASS < 1.0 NG/ML (<3.6); CPK CREATINE PHOSPHOKINASE 164 U/L (26-192); MB/CK RELATIVE INDEX 0.61 (< OR =4); TROPONIN I < 0.02 NG/ML (< 0.10)
--- NOTE | 2021-01-07 22:04 | REPVR ---
PROCEDURE INFORMATION: Exam: XR Chest Exam date and time: 01/07/21 (8:54pm) Age: 50 years old Clinical indication: Hypertensive emergency TECHNIQUE: Imaging protocol: Portable CXR Views: 1 view COMPARISON: Chest films of 11/14/20 FINDINGS: Lungs: Unremarkable. No consolidation. Pleural spaces: Unremarkable. No pleural effusions. No pneumothorax. Heart/Mediastinum: Heart may be top normal in size. Bones/joints: Unremarkable. IMPRESSION: No acute findings. Lung kaplan remain clear. Electronically signed by: Nella Dempsey On 01/07/2021 22:03:51 PM
[2021-01-07] MEDS ORDERED: KETOROLAC 30 MG/ML 1ML VIAL IV ONE (22:05)
[2021-01-07] MEDS ORDERED: CARVedilol 12.5 MG TAB PO ONE (22:05)
[2021-01-07] MEDS ORDERED: cloNIDine 0.2 MG TAB PO ONE (22:45)
[2021-01-07 22:50] VITALS: BP 200/106
[2021-01-07] MEDS ORDERED: CHLO125TA PO (23:48)
[2021-01-08 00:05] VITALS: BP 136/77
--- NOTE | 2021-01-08 06:36 | ECGEPIP ---
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
== END 2021-01-08 00:05 | disposition home or self-care (01) ==
LOC: M ED 14:30
DX: I16.0 Hypertensive urgency (principal); E11.9 Type 2 diabetes mellitus without complications; E78.5 Hyperlipidemia, unspecified; I10 Essential (primary) hypertension; Z79.84 Long term (current) use of oral hypoglycemic drugs; Z79.899 Other long term (current) drug therapy
CPT/HCPCS: 36415; 71045; 80047; 82550; 82553; 85025; 85652; 86140; 93005; 96374; 99284; J1885

== ENCOUNTER → 2021-05-18 | Outpatient (REF) ==
[~2021-05-18] MED LIST changes: +LOSA100T45
== END ==
LOC: M LABSMTC 11:54
PROVIDERS: ATTEND Pediatrics
DX: Z20.822 Contact with and (suspected) exposure to COVID-19 (principal)

== ENCOUNTER → 2021-08-28 | Outpatient (CLI) | payer BC | LOC: M RAD 11:19 | PROVIDERS: ATTEND Pediatrics | DX: M25.551 Pain in right hip (principal) ==

== ENCOUNTER → 2021-10-06 | Outpatient (CLI) | payer BC | LOC: M WHC 12:09 | PROVIDERS: ATTEND Pediatrics | DX: Z12.31 Encounter for screening mammogram for malignant neoplasm of breast (principal); R92.8 Other abnormal and inconclusive findings on diagnostic imaging of breast ==

== ENCOUNTER → 2021-10-19 | Outpatient (CLI) | payer BC | LOC: M WHC 13:13 | PROVIDERS: ATTEND Pediatrics | DX: R92.8 Other abnormal and inconclusive findings on diagnostic imaging of breast (principal) | CPT/HCPCS: 77065; G0279 ==

== ENCOUNTER → 2021-11-01 | Outpatient (CLI) | payer BC ==
[~2021-11-01] MED LIST changes: +ASPI81TA26 PO; +FISH1000 PO; +FOLI1TAB11 PO; +IRBE300T7 PO; +VITMTA PO
== END ==
LOC: M LABSMTC 09:30
PROVIDERS: ATTEND Anesthesiology
DX: Z11.52 Encounter for screening for COVID-19 (principal); Z20.822 Contact with and (suspected) exposure to COVID-19

== ENCOUNTER 2021-11-04 07:13 | Day surgery (SDC) | payer BC ==
[~2021-11-04] VITALS: Ht 170.2 cm; Wt 68.9 kg
[~2021-11-04 07:13] MED LIST changes: +NS 1,000 ML IV ONE
[2021-11-04] MEDS ORDERED: propofoL 200 MG/20 ML VIAL As Ordered ONE (08:09)
[2021-11-04] MEDS ORDERED: LIDOCAINE 2% MDV 20ML VIAL As Ordered ONE (08:09)
[2021-11-04 09:14] VITALS: BP 118/67
== END 2021-11-04 09:18 | disposition home or self-care (01) ==
LOC: M OPP 07:13
PROVIDERS: ATTEND Surgery
DX: Z12.11 Encounter for screening for malignant neoplasm of colon (principal); K64.0 First degree hemorrhoids; E11.9 Type 2 diabetes mellitus without complications; I10 Essential (primary) hypertension; Z79.02 Long term (current) use of antithrombotics/antiplatelets; Z79.82 Long term (current) use of aspirin; Z79.899 Other long term (current) drug therapy

== ENCOUNTER → 2021-12-11 | Outpatient (CLI) | payer BC ==
[~2021-12-11] MED LIST changes: +ISOVUE-300 61% 50ML VIAL As Ordered ONE; +ISOVUE-300 61% 5ML SYRINGE As Ordered ONE; +LIDOCAINE 1% MDV 20ML VIAL As Ordered ONE; -NS 1,000 ML IV ONE; +PROHANCE 279.3MG/ML 15ML VIAL As Ordered ONE; +PROHANCE 279.3MG/ML 5ML VIAL As Ordered ONE
== END ==
LOC: M RADPRO 10-26 06:45
PROVIDERS: ATTEND Orthopaedic Surgery Adult Reconstructive Orthopaedic Surgery
DX: M70.61 Trochanteric bursitis, right hip (principal)
CPT/HCPCS: 27093; 73723; 77002; A9576; Q9967

== ENCOUNTER → 2021-12-22 | Outpatient (CLI) | payer BC ==
[~2021-12-22] MED LIST changes: -ISOVUE-300 61% 50ML VIAL As Ordered ONE; -ISOVUE-300 61% 5ML SYRINGE As Ordered ONE; -LIDOCAINE 1% MDV 20ML VIAL As Ordered ONE; -PROHANCE 279.3MG/ML 5ML VIAL As Ordered ONE
== END ==
LOC: M RAD 14:57
PROVIDERS: ATTEND Orthopaedic Surgery Adult Reconstructive Orthopaedic Surgery
DX: R93.7 Abnormal findings on diagnostic imaging of other parts of musculoskeletal system (principal); M16.11 Unilateral primary osteoarthritis, right hip
CPT/HCPCS: 72197; A9576

== ENCOUNTER → 2022-10-27 | Outpatient (CLI) | payer BC ==
[~2022-10-27] MED LIST changes: -K-TA10TA2 PO; -LOSA100T45; +LOSA100T46; +POTA-165 PO; -PROHANCE 279.3MG/ML 15ML VIAL As Ordered ONE
== END ==
LOC: M WHC 15:40
PROVIDERS: ATTEND Pediatrics
DX: Z12.31 Encounter for screening mammogram for malignant neoplasm of breast (principal)

== ENCOUNTER 2022-12-01 15:49 | Emergency (ER) | payer OTHER, BC ==
[~2022-12-01] VITALS: Ht 170.2 cm; Wt 72.7 kg
[2022-12-01] MEDS ORDERED: IBUP-1022 PO (19:08)
[2022-12-01] MEDS ORDERED: IBUPROFEN 600MG TAB PO ONE (19:10)
[2022-12-01 19:14] VITALS: BP 143/80; TEMP 98; O2SAT 100
== END 2022-12-01 19:21 | disposition home or self-care (01) ==
LOC: M ED 15:49
DX: S63.92XA Sprain of unspecified part of left wrist and hand, initial encounter (principal); X50.0XXA Overexertion from strenuous movement or load, initial encounter; Y92.89 Other specified places as the place of occurrence of the external cause; Y93.89 Activity, other specified; Y99.0 Civilian activity done for income or pay; I10 Essential (primary) hypertension; E78.5 Hyperlipidemia, unspecified; E11.9 Type 2 diabetes mellitus without complications; Z79.899 Other long term (current) drug therapy; Z79.84 Long term (current) use of oral hypoglycemic drugs; Z79.82 Long term (current) use of aspirin

== ENCOUNTER → 2023-02-07 | Outpatient (REF) | payer OTHER, BC ==
[~2023-02-07] MED LIST changes: +IBUP-1022 PO; +MECL-209 PO; -MECL1TAB31 PO
[2023-02-07 18:11] LABS: BASO % 0.6 % (0.0-1.0); EOS # 0.2 10^3/uL (0.0-0.5); EOS % 4.1 % (0.0-3.0); HEMATOCRIT 37.9 % (36.0-47.0); HEMOGLOBIN 12.2 g/dl (12.0-15.5); LYMPH # 1.6 10^3/uL (1.5-5.0); LYMPH % 33.5 % (24.0-44.0); MEAN CORPUSCULAR HEMOGLOBIN 26.3 pg (27.0-33.0); MEAN CORPUSCULAR HGB CONC 32.2 g/dl (32.0-36.5); MEAN CORPUSCULAR VOLUME 81.7 fl (80.0-96.0); MONO # 0.4 10^3/uL (0.0-0.8); MONO % 8.8 % (2.0-8.0); NEUTROPHILS # 2.6 10^3/uL (1.5-8.5); NEUTROPHILS % 52.8 % (36.0-66.0); PLATELET COUNT, AUTOMATED 194 10^3/uL (150-450); RED BLOOD COUNT 4.64 10^6/uL (4.00-5.40); WHITE BLOOD COUNT 4.9 10^3/uL (4.0-10.0)
[2023-02-07 19:32] LABS: ALBUMIN 4.4 G/DL (3.2-5.2); ALKALINE PHOSPHATASE 86 U/L (46-116); ALT/SGPT 48 U/L (7.0-40); AST/SGOT 18 U/L (<34); BILIRUBIN,TOTAL 0.9 MG/DL (0.3-1.2); BLOOD UREA NITROGEN 15 MG/DL (9-23); CALCIUM LEVEL 10.1 MG/DL (8.5-10.1); CARBON DIOXIDE LEVEL 31 MMOL/L (20-31); CHLORIDE LEVEL 100 MMOL/L (98-107); CHOLESTEROL LEVEL 151 MG/DL (<200); CHOLESTEROL RISK RATIO 2.97 (<5); CREATININE FOR GFR 0.58 MG/DL (0.55-1.30); FERRITIN 115.7 NG/ML (7.3-270.7); GLOMERULAR FILTRATION RATE > 60.0 (>51); GLUCOSE, FASTING 157 MG/DL (60-100); HDL CHOLESTEROL 50.8 MG/DL (>40); LDL CHOLESTEROL 77.6 MG/DL (<100); NON-HDL-C 100.2 MG/DL; POTASSIUM SERUM 3.6 MMOL/L (3.5-5.1); SODIUM LEVEL 138 MMOL/L (136-145); THYROID STIMULATING HORMONE 1.871 uIU/ML (0.55-4.78); TOTAL PROTEIN 8.3 G/DL (5.7-8.2); TRIGLYCERIDES LEVEL 113 MG/DL (<150); VITAMIN B12 LEVEL 777 PG/ML (211-911)
== END ==
LOC: M LAB REF 16:53
PROVIDERS: ATTEND Pediatrics
DX: E11.8 Type 2 diabetes mellitus with unspecified complications (principal); Z11.1 Encounter for screening for respiratory tuberculosis; R20.2 Paresthesia of skin

== ENCOUNTER → 2023-07-22 | Outpatient (REF) | payer BC ==
[~2023-07-22] MED LIST changes: +IRBE300T25 PO; -IRBE300T7 PO
[2023-07-22 12:24] LABS: CREATININE, URINE 65.1 MG/DL
[2023-07-22 12:25] LABS: MAU/CREAT RATIO 107.5 MCG/MG (0.0-30.0)
== END ==
LOC: M LAB REF 11:17
PROVIDERS: ATTEND Pediatrics
DX: R80.9 Proteinuria, unspecified (principal)

== ENCOUNTER → 2023-10-19 | Outpatient (REF) | LOC: M EMP 15:00 | PROVIDERS: ATTEND Family Medicine | DX: Z11.52 Encounter for screening for COVID-19 (principal) ==

== ENCOUNTER → 2023-11-25 | Outpatient (REF) | payer BC | LOC: M LAB REF 12:34 | PROVIDERS: ATTEND Pediatrics | DX: Z11.1 Encounter for screening for respiratory tuberculosis (principal) ==

== ENCOUNTER → 2023-12-23 | Outpatient (REF) | payer BC ==
[2023-12-23 17:28] LABS: CREATININE, URINE 38.4 MG/DL; MALB URINE SIEMENS < 3.0 MG/L; MAU/CREAT RATIO 7.8 MCG/MG (0.0-30.0)
[2023-12-23 19:51] LABS: THYROID STIMULATING HORMONE 2.376 uIU/ML (0.55-4.78)
[2023-12-23 19:52] LABS: ALBUMIN 4.3 G/DL (3.2-5.2); ALKALINE PHOSPHATASE 104 U/L (46-116); ALT/SGPT 38 U/L (7.0-40); AST/SGOT 22 U/L (<34); BILIRUBIN,TOTAL 0.8 MG/DL (0.3-1.2); BLOOD UREA NITROGEN 22 MG/DL (9-23); CALCIUM LEVEL 10.3 MG/DL (8.5-10.1); CARBON DIOXIDE LEVEL 29 MMOL/L (20-31); CHLORIDE LEVEL 99 MMOL/L (98-107); CHOLESTEROL LEVEL 139 MG/DL (<200); CHOLESTEROL RISK RATIO 3.73 (<5); GLOMERULAR FILTRATION RATE > 60.0 (>51); GLUCOSE, FASTING 193 MG/DL (60-100); HDL CHOLESTEROL 37.2 MG/DL (>40); NON-HDL-C 101.8 MG/DL; POTASSIUM SERUM 3.4 MMOL/L (3.5-5.1); SODIUM LEVEL 136 MMOL/L (136-145); TOTAL PROTEIN 8.2 G/DL (5.7-8.2); TRIGLYCERIDES LEVEL 159 MG/DL (<150)
[2023-12-23 19:54] LABS: HEMOGLOBIN A1c 9.2 % (4.0-6.0)
== END ==
LOC: M LAB REF 16:05
PROVIDERS: ATTEND Pediatrics
DX: E11.8 Type 2 diabetes mellitus with unspecified complications (principal); E78.5 Hyperlipidemia, unspecified

== ENCOUNTER → 2024-01-06 | Outpatient (CLI) | payer BC | LOC: M WHC 12:23 | PROVIDERS: ATTEND Pediatrics | DX: Z12.31 Encounter for screening mammogram for malignant neoplasm of breast (principal); R92.313 Mammographic fatty tissue density, bilateral breasts ==

== ENCOUNTER → 2024-04-27 | Outpatient (REF) | payer BC ==
[2024-04-27 13:14] LABS: CREATININE, URINE 14.4 MG/DL; MAU/CREAT RATIO 27.7 MCG/MG (0.0-30.0)
[2024-04-27 17:21] LABS: ALBUMIN 4.3 G/DL (3.2-5.2); ALKALINE PHOSPHATASE 86 U/L (35-104); ALT/SGPT 38 U/L (7.0-40); AST/SGOT 20 U/L (<34); BILIRUBIN,TOTAL 0.9 MG/DL (0.3-1.2); BLOOD UREA NITROGEN 17 MG/DL (9-23); CARBON DIOXIDE LEVEL 30 MMOL/L (20-31); CHLORIDE LEVEL 100 MMOL/L (98-107); CREATININE FOR GFR 0.57 MG/DL (0.55-1.30); GLOMERULAR FILTRATION RATE > 60.0 (>51); GLUCOSE, FASTING 178 MG/DL (60-100); POTASSIUM SERUM 3.6 MMOL/L (3.5-5.1); SODIUM LEVEL 139 MMOL/L (136-145); TOTAL PROTEIN 8.2 G/DL (5.7-8.2)
[2024-04-27 17:27] LABS: HEMOGLOBIN A1c 8.1 % (4.0-6.0)
== END ==
LOC: M LAB REF 11:52
PROVIDERS: ATTEND Pediatrics
DX: E11.8 Type 2 diabetes mellitus with unspecified complications (principal)